=== PATIENT | female | born 1965 | race Two or more races ===

== ENCOUNTER 2016-10-24 06:34 | Emergency (ER) | payer MEDICAID ==
[~2016-10-24] VITALS: Ht 162.6 cm; Wt 72.0 kg
[2016-10-24 10:39] VITALS: BP 121/78
== END 2016-10-24 10:41 | disposition home or self-care (01) ==
LOC: ED 10:35
DX: F10.120 Alcohol abuse with intoxication, uncomplicated (principal)
CPT/HCPCS: 70450; 99284